=== PATIENT | female | born 1955 | race Two or more races ===

== ENCOUNTER 2016-10-19 10:03 | Outpatient (CLI) | payer BC ==
[~2016-10-19] VITALS: Ht 165.1 cm; Wt 75.9 kg
--- NOTE | ~2016-10-19 | HEMODYNAMI ---
PATIENT:MARCELO GONZÁLES MEDICAL RECORD: [id number] : 59 LOCATION:D.CAT ADMISSION DATE: 10/19/16 Generatedon:10/19/201614:42 Patient name: MARCELO GONZÁLES Patient #: [id number] SSN: [id number] : 1955 Date of study: 10/19/2016 Page: Of Hemodynamic Procedure Report Patient Data Patient Demographics Procedure consent was obtained First Name: MARCELO Gender: Female Last Name: NIVIA : 1955 Middle Initial: E Age: 61 year(s) Patient #: [id number] Race: Other SSN: [id number] Additional ID: [id number] Contact details Address: [address] [place] [address] State: [place] City: [place] Zip code: [address] Admission Admission Data Admission Date: 10/19/2016 Admission Time: 10:03 Arrival Date: 10/19/2016 Arrival Time: 13:30 Admit Source: Other Insurance Payor: Private health insurance Height (in.): 65 BSA: 1.78 (m2) Height (cm.): 165.1 BMI: 26.13 (kg/m2) Weight (lbs.): 157 Weight (kg.): 71.21 Lab Results Lab Result Date: 10/19/2016 Lab Result Time: 0:00 Biochemistry Name Units Result Min Max BUN mg/dl 17 --(---*)-- 7 18 Creatinine mg/dl 1 --(--*-)-- 0.6 1.3 CBC Name Units Result Min Max Hemoglobin g/dl 15.9 --(--*-)-- 13.5 17.5 Procedure Procedure Types Cath Procedure Diagnostic Procedure PPM/ICD Permanent Pacer Generator Exg. Procedure Description Procedure Date Procedure Date: 10/19/2016 Procedure Start Time: 0:00 Procedure Staff Name Function Maximiliano Myers MD Performing Physician Adrienne Steel RT Scrub Kirsten aRmirez RN Nurse Bronwyn Mishra RT Monitor Dennis Sanders MD Assisting physician Procedure Data Cath Procedure Fluoroscopy Diagnostic fluoroscopy Total fluoroscopy Time: 0 time: 0 min min Diagnostic fluoroscopy Total fluoroscopy dose: 0 dose: 0 mGy mGy Contrast Material Contrast Material Type Amount (ml) Isovue 370 0 Estimated blood loss: 5 ml Procedure Complications No complications Procedure Medications Medication Administration Route Dosage Bupivacaine 0.5% S.Q. 10 ml Lidocaine 1% with added to field 20 ml Epi Ancef (1Gm/50ml NS) I.V.P.B 1 g Ancef Irrigation Topical 1 g (1gm/500ml NS) Versed I.V. 1 mg Fentanyl I.V. 50 mcg Hemodynamics Rest BSA: 1.78 (m2) HGB: 15.9 (g/dl) O2 Consumption: Estimated: 166.02 (ml/min) O2 Co nsumption indexed: Estimated:93.27 (ml/min/m) Heart Rate: 65 (bpm) Snapshots Pre Cath Intra NCS Post Cath Vital Signs Time Heart Resp SPO2 NIBP (mmHg) Rhythm Pain Sedation Rate (ipm) (%) Status Level (bpm) 14:03:06 72 17 100 143/89(119) NSR 0 (11) 10(A) , No pain 14:08:30 67 16 100 144/77(109) NSR 0 (11) 10(A) , No pain 14:12:50 67 16 99 143/79(120) NSR 0 (11) 10(A) , No pain 14:17:10 67 17 98 139/71(107) NSR 0 (11) 10(A) , No pain 14:21:30 65 16 98 146/83(113) NSR 0 (11) 10(A) , No pain 14:25:56 80 19 99 140/74(103) NSR 0 (11) 10(A) , No pain 14:30:13 70 16 98 125/70(98) NSR 0 (11) 10(A) , No pain 14:34:27 72 16 97 117/67(92) NSR 0 (11) 10(A) , No pain 14:38:43 71 16 98 114/67(89) NSR 0 (11) 10(A) , No pain Medications Time Medication Route Dose Verified Delivered Reason Notes Effective ness by by 14:08:43 Bupivacaine S.Q. 10 ml Kirsten Kirsten used for 0.5% Ramirez Ramirez project management advisor RN 14:08:53 Lidocaine added 20 ml Kirsten Kirsten used for 1% with Epi to Ramirez Ramirez procedure field RN RN 14:09:04 Ancef I.V.P.B 1 g Kirsten Kirsten Per (1Gm/50ml Ramirez Ramirez physician NS) RN RN 14:09:12 Ancef Topical 1 g Kirsten Kirsten used for Irrigation Ramirez Ramirez procedure (1gm/500ml RN RN NS) 14:24:20 Versed I.V. 1 mg Kirsten Kirsten for Ramirez Ramirez sedation RN RN 14:24:25 Fentanyl I.V. 50 Kirsten Kirsten for mcg Ramirez Ramirez sedation RN forge operator Log Time Note 13:50:24 Adrienne Steel RT(R) sent for patient. Start room use. 14:01:08 Diagnostic Cath Status : Elective 14:01:34 Time tracking: Regular hours 14:01:38 Plan of Care:Hemodynamics will remain stable., Cardiac rhythm will remain stable., Comfort level will be maintained., Respiratory function will remain adequate., Patient/ family verbilizes understanding of procedure., Procedure tolerated without complication., Recovers from procedure without complications.. 14:01:51 Patient received from Pre/Post Procedure Room to CCL 2 Alert and oriented. Tansferred to table in Supine position. 14:01:52 Warm blankets applied, and zenaida hugger turned on for patient comfort. 14:01:52 Correct patient and procedure confirmed by team. 14:01:53 Signed procedure consent form obtained from patient. 14:01:54 ECG and BP/O2 sat monitors applied to patient. 14:01:56 Vital chart was started 14:01:58 Baseline sample Acquired. 14:02:08 Rhythm: atrial fibrillation 14:02:10 Full Disclosure recording started 14:03:04 H&P Date Dictated: 10/16/2016 Within 30 days and on chart., H&P Addendum completed by physician on day of procedure. (MUST COMPLETE FOR ALL OUTPATIENTS). 14:03:06 Pre-procedure instructions explained to patient. 14:03:06 Pre-op teaching completed and patient verbalized understanding. 14:03:07 Family in waiting room. 14:03:09 Patient NPO since Midnight. 14:03:17 Is the patient allergic to Iodine/contrast media? No. 14:03:18 Was the patient premedicated? No 14:03:19 Is patient on blood thinner?No 14:03:26 Patient diabetic? Yes. 14:04:03 If diabetic: On Metformin? Unknown 14:04:06 Previous problem with sedation/anesthesia? No ? 14:04:07 Snore? Yes 14:04:08 Sleep apnea? No 14:04:10 Deviated septum? No 14:04:10 Opens mouth fully? Yes 14:04:11 Sticks out tongue? Yes 14:04:13 Airway obstruction? No ? 14:04:15 Dentures? No ? 14:04:18 Pre procedure: right dorsailis pedis pulse 1+ Palpable, but thready & weak; easily obliterated 14:04:21 Patient pain scale 0/10 ?. 14:04:33 IV patent on arrival in left antecubital with 0.9% NaCl at O. 14:08:43 Bupivacaine 0.5% 10 ml S.Q. was given by Kirsten Ramirez RN; used for procedure; 14:08:53 Lidocaine 1% with Epi 20 ml added to field was given by Kirsten Ramirez RN; used for procedure; 14:09:04 Ancef (1Gm/50ml NS) 1 g I.V.P.B was given by Kirsten Ramirez RN; Per physician; 14:09:12 Ancef Irrigation (1gm/500ml NS) 1 g Topical was given by Kirsten Ramirez RN; used for procedure; 14:11:18 Lab Result : BUN 17 mg/dl 14::18 Lab Result : Hemoglobin 15.9 g/dl 14:11:18 Lab Result : Creatinine 1 mg/dl 14:11:22 Lab results completed and on chart. 14:11:26 Right chest area was prepped with chlora-prep and draped in sterile fashion 14::27 Alarms reviewed by R. N. 14:11:27 Sharps counted by scrub and verified by R.N. 14:11:29 Physician paged 14:14:26 Med3yy game platforma MRI PPM Dual Generator opened to sterile field. 14:14:56 Physician responded to page. 14:15:02 --------ALL STOP TIME OUT------ 14:15:18 [employer]onic telesales representative Selvin Dan present for procedure. 14:15:37 Pre sharps counted by scrub and verified by RN: Sutures: 14 Sponges: 5 Stick needles: 2 Skin needles: 0 Blade: 1 Cautery: 1 14:15:41 Grounding pad site Left thigh. 14:15:42 Grounding pad site free from injury. 14:16:54 Patient Height : 165.1 inches 14:17:01 Patient Weight : 71.21 lbs 14:17:01 Insurance Payor : Private health insurance 14:17:03 Arrival Date: 10/19/2016 1:30:00 PM 14:17:14 Admit Source: Other 14:20:39 Lidocaine 1% w/epi to right subclavicular area by Dennis Sanders MD. 14:21:28 Incision made to right subclavicular area. 14:21:31 Generator pocket made/opened. 14:24:20 Versed 1 mg I.V. was given by Kirsten Ramirez RN; for sedation; 14:24:25 Fentanyl 50 mcg I.V. was given by Kirsten Ramirez RN; for sedation; 14:25:32 PPM Single was removed.. 14:25:41 PPM Dual was attached to lead(s) and inserted into pocket. 14:27:03 Device pocket was irrigated with Ancef. 14:28:39 Generator was sutured in place with 2-0 ticron. 14:30:16 Use device set Pacemaker Set 14:30:18 Mepilex Dressing opened to sterile field. 14:30:19 2.0 Ticron Multipack opened to sterile field. 14:30:20 3.0 Vicryl Multipack [id number] opened to sterile field. 14:30:21 5.0 Monocryl PS2 [id number] opened to sterile field. 14:30:42 Subcutaneous closure was completed with 3-0 vicryl plus. 14:34:17 Parameters--Ventricular P/R Wave: 17.5mV. Current: 1.1mA; Threshold: 0.5V; Impedence: 487OHMS. 14:34:41 Parameters--Atrial P/R Wave: 3.4mV. Current: 0.7mA; Threshold: 0.3V; Impedence: 516OHMS. 14:34:48 Skin closure was completed with 5-0 monocryl. 14:36:47 incision closed with sutures and dermabond 14:36:55 Rt Chest incision was dressed with Mepilex dressing. 14:37:13 Procedure ended.(Physican Out) 14:39:10 Fluoroscopy time 00.00 minutes. 14:39:12 Fluoroscopy dose: 0 mGy 14:39:12 Flurop Dose total: 0 14:39:14 Contrast amount:Isovue 370 0ml. 14:39:15 Sharps counted by scrub and verified by R.N. 14:39:29 Post procedure rhythm: unchanged. 14:39:33 Estimated blood loss: 5 ml 14:39:35 Post procedure instruction explained to patient.Patient verbalizes understanding. 14:39:35 Patient needs reinforcement of post procedure teaching. 14:40:01 Procedure and supply charges have been captured, reviewed, submitted and are correct. 14:40:06 Procedure Complication : No complications 14:40:07 Vital chart was stopped 14:40:08 See physician's report for complete and final results. 14:40:10 Report given to Pre/Post Procedure Room. 14:40:12 Patient transfered to Pre/Post Procedure Room with Stretcher. 14:40:17 End room use (Document Last) Device Usage Item Name Manufacture Quantity Catalog Hospital Part Current Minimal Lo t# / Number Charge Number Stock Stock Serial# Code Medtronic Medtronic 1 [id number] 5 PV [id number] Advisa EX J97-05-18 MRI PPM Dual Generator Mepilex Cardinal 1 [id number] [id number] 5 Dressing Health 2.0 Ethicon 6 [id number] [id number] [id number] 5 Ticron Multipack 3.0 Ethicon 1 [id number] [id number] 5 Vicryl Multipack [id number] 5.0 Ethicon 1 [id number] 116096 [id number] 5 Monocryl PS2 [id number] Signature Audit [place] Stage Time Signature Unsigned Intra-Procedure 10/19/2016 Bronwyn Mishra 2:42:21 PM RT(R) Signatures Monitor : Bronwyn Mishra RT Signature : Date : Time : [place] [address] [place] [address]
[2016-10-19] MEDS ORDERED: ZYRTEC10 MG PO (11:07)
[2016-10-19] MEDS ORDERED: LOTENSIN5 MG PO (11:08)
[2016-10-19] MEDS ORDERED: LANOXIN250 MCG PO (11:09)
[2016-10-19] MEDS ORDERED: PAROXETINE HCL10 MG PO (11:10)
[2016-10-19] MEDS ORDERED: SYNTHROID112 MCG PO (11:10)
[2016-10-19 11:25] LABS: BASOPHILS 0.9 % (0.0-2.0); EOSINOPHILS 6.2 % (0-7); HEMATOCRIT 47.1 % (36.0-48.0); HEMOGLOBIN 15.9 g/dL (12-16); IMMATURE GRANULOCYTES 0.4 % (0-5); LYMPHOCYTES 26.3 % (15-50); MCH 28.8 pg (26.0-34.0); MCHC 33.8 g/dL (31.0-37.0); MCV 85.3 fL (80.0-100.0); MEAN PLATELET VOLUME 11.8 fL (7.4-10.4); MONOCYTES 5.6 % (2-11); NEUTROPHILS 60.6 % (40-80); PLATELET COUNT 241 10x3/uL (130-400); RBC 5.52 10x6/uL (4.00-5.40); RDW 13.1 % (11.5-14.5); WBC 7.9 10x3/uL (4.8-10.8)
[2016-10-19 11:26] VITALS: BP 142/81; Ht 165.1 cm; Wt 75.9 kg
[2016-10-19 11:36] LABS: APTT 27.5 SECONDS (22.8-39.4); INR 1.07 (0.85-1.17); PROTIME 13.8 SECONDS (11.6-15.0)
[2016-10-19 11:38] LABS: ANION GAP 9.7 mmol/L (8-16); CALCIUM 9.3 mg/dL (8.5-10.1); CARBON DIOXIDE 30.7 mmol/L (21.0-32.0); POTASSIUM - SERUM 4.4 mmol/L (3.5-5.1)
[2016-10-19] MEDS ORDERED: HYDROCODONE-APA1 TAB PO (14:40)
--- NOTE | 2016-10-19 16:00 | NUR ---
DISCHARGE INSTRUCTIONS GIVEN, PT AND FAMILY VERBALIZED UNDERSTANDING. LEFT AC PIV D/C'D WITH CATHETER INTACT. ASSISTED PT TO SIDE OF BED TO GET DRESSED.
--- NOTE | 2016-10-19 16:06 | NUR ---
UP TO RESTROOM TO VOID.
--- NOTE | 2016-10-19 16:11 | NUR ---
PT TAKEN OUT VIA WHEELCHAIR BY CATH LINING MACHINE OPERATOR. LEFT FACILITY WITH FAMILY MEMBER AND ALL PERSONAL BELONGINGS.
--- NOTE | 2016-10-20 13:33 | OP ---
PATIENT NAME: MARCELO GONZÁLES MEDICAL RECORD: [id number] :59 LOCATION:D.CAT ADMISSION DATE: SURGEON: LUIZ OTTO MD DATE OF OPERATION: 10/19/2016 PREOPERATIVE DIAGNOSES: 1. End-of-life pacemaker. 2. Hypertension. 3. Atrial fibrillation. 4. Coronary artery disease. 5. Diabetes mellitus. POSTOPERATIVE DIAGNOSES: 1. End-of-life pacemaker. 2. Hypertension. 3. Atrial fibrillation. 4. Coronary artery disease. 5. Diabetes mellitus. PROCEDURE: Right subclavian vein pacemaker exchange, dual lead pacemaker exchange. SURGEON: Luiz Otto MD REPORT OF PROCEDURE: The patient's right chest was prepped and draped in sterile fashion. A 20 cc of 1% lidocaine with epinephrine was infused into the surrounding tissues. A skin incision was made overlying the pacemaker. We dissected down to the pacemaker and eviscerated it through the wound. The leads were removed from the pacemaker and were checked and each appeared to be functioning appropriately. A new dual lead pacemaker generator was inserted and the leads were affixed. This pacemaker was sutured down with an 0 Ti-Cron. We then irrigated out the wound with antibiotic solution. The subcutaneous tissues were reapproximated with interrupted 3-0 Vicryls and the skin was closed with running subcutaneous 5-0 Monocryl. COMPLICATIONS: None. CONDITION: Stable. ANESTHESIA: Local MAC. BLOOD LOSS: Minimal. TRANSINT:[id number] Voice Confirmation ID: [id number] DOCUMENT ID: [id number] LUIZ OTTO MD at 1333 CC: THEO [place] M.D. [id number] DICTATION DATE: 10/19/16 144 MEDIA TECHNICIAN: 10/19/162041 DEP CLI 10/19/16 [place] [id number] [place] [id number]
== END 2016-10-19 16:11 | disposition home or self-care (01) ==
LOC: D.CATH 10:03
PROVIDERS: Internal Medicine Cardiovascular Disease
DX: Z45.010 Encounter for checking and testing of cardiac pacemaker pulse generator [battery] (principal); I48.91 Unspecified atrial fibrillation; I10 Essential (primary) hypertension; I25.10 Atherosclerotic heart disease of native coronary artery without angina pectoris; E11.9 Type 2 diabetes mellitus without complications

== ENCOUNTER → 2016-11-08 16:54 | Outpatient (CLI) | payer BC ==
[2016-10-19 11:26] VITALS: BMI 27.8
[~2016-11-08 16:54] MED LIST: HYDROCODONE-APA1 TAB PO; LANOXIN250 MCG PO; LOTENSIN5 MG PO; PAROXETINE HCL10 MG PO; SYNTHROID112 MCG PO; ZYRTEC10 MG PO
== END | disposition home or self-care (01) ==
LOC: D.MAMMO 13:30
DX: Z85.3 Personal history of malignant neoplasm of breast (principal)

== ENCOUNTER → 2017-12-05 19:42 | Outpatient (CLI) | payer BC ==
[2016-10-19 11:26] VITALS: BMI 27.8
== END | disposition home or self-care (01) ==
LOC: D.MAMMO 14:00
DX: Z85.3 Personal history of malignant neoplasm of breast (principal)

== ENCOUNTER → 2018-12-05 16:55 | Outpatient (CLI) | payer BC ==
[2016-10-19 11:26] VITALS: BMI 27.8
== END | disposition home or self-care (01) ==
LOC: D.MAMMO 14:00
PROVIDERS: ATTEND Surgery
DX: R92.1 Mammographic calcification found on diagnostic imaging of breast (principal)

== ENCOUNTER → 2019-08-25 10:48 | Outpatient (CLI) | payer BC ==
[2016-10-19 11:26] VITALS: BMI 27.8
== END | disposition home or self-care (01) ==
LOC: D.HCCECHO 10:48
PROVIDERS: ATTEND Internal Medicine Cardiovascular Disease
DX: I25.10 Atherosclerotic heart disease of native coronary artery without angina pectoris (principal)

== ENCOUNTER → 2019-12-29 21:00 | Outpatient (CLI) | payer BC ==
[2016-10-19 11:26] VITALS: BMI 27.8
== END ==
LOC: D.MAMMO 11-19 11:00
PROVIDERS: ATTEND Internal Medicine
DX: Z12.31 Encounter for screening mammogram for malignant neoplasm of breast (principal)

== ENCOUNTER 2020-11-25 18:12 | Outpatient (CLI) | payer OTHER ==
[2016-10-19 11:26] VITALS: BMI 27.8
== END 2020-11-25 23:59 | disposition home or self-care (01) ==
LOC: D.MAMMO 18:12
PROVIDERS: ATTEND Internal Medicine
DX: Z12.31 Encounter for screening mammogram for malignant neoplasm of breast (principal)